=== PATIENT | male | born 1975 | race American Indian/Alaskan Native ===

== ENCOUNTER 2017-12-01 04:20 | Inpatient (IN) | payer OTHER ==
--- NOTE | 2017-12-01 04:56 | C.PDOC ---
Time Seen by Provider: 12/01/17 04:36 Chief Complaint (Nursing): Psychiatric Evaluation Past Medical History Vital Signs: Last Vital Signs Temp 98.3 F 12/01/17 04:35 Pulse 85 12/01/17 04:35 Resp 20 12/01/17 04:35 BP 147/87 12/01/17 04:35 Pulse Ox 96 12/01/17 04:35 - Social History Hx Alcohol Use: Yes Hx Substance Use: No - Immunization History Hx Tetanus Toxoid Vaccination: No Hx Influenza Vaccination: No Hx Pneumococcal Vaccination: No ED Course And Treatment O2 Sat by Pulse Oximetry: 96 Disposition - Disposition
--- NOTE | 2017-12-01 05:58 | C.PDOC ---
History Of Present Illness <Gisselle Teran - Last Filed: 12/01/17 06:56> <Nancy Kitchen - Last Filed: 12/01/17 16:53> <Franc Winchester - Last Filed: 12/06/17 00:12> 42yo male, brought to ER by his brothers for evaluation as patient has had increasingly odd behavior over the last few days to longer. The brothers report the patient recently moved to [place] from [place] (had been living there for 21+ years) and are unsure if he was on any medications or specific treatment plan. Patient has had pyschiatric hospitalizations in the past. 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 Patient currently has no medical complaints. (Gisselle Teran) History Per: Family Onset/Duration Of Symptoms: Persistent Current Symptoms Are (Timing): Still Present Associated Symptoms: Anger, Agitation <Gisselle Teran - Last Filed: 12/01/17 06:56> <Nancy Kitchen - Last Filed: 12/01/17 16:53> <Franc Winchester - Last Filed: 12/06/17 00:12> Time Seen by Provider: 12/01/17 04:36 Chief Complaint (Nursing): Psychiatric Evaluation Past Medical History Reviewed: Historical Data, Nursing Documentation, Vital Signs Surgical History: No Surg Hx Family History: States: No Known Family Hx - Social History Hx Alcohol Use: Yes Hx Substance Use: No - Immunization History Hx Tetanus Toxoid Vaccination: No Hx Influenza Vaccination: No Hx Pneumococcal Vaccination: No <Gisselle Teran - Last Filed: 12/01/17 06:56> Vital Signs: Last Vital Signs Temp 97.6 F 12/05/17 05:22 Pulse 102 H 12/05/17 15:51 Resp 18 12/05/17 05:22 BP 130/94 H 12/05/17 15:51 Pulse Ox 98 12/01/17 10:04 Review Of Systems Constitutional: Negative for: Fever, Chills Cardiovascular: Negative for: Chest Pain Respiratory: Negative for: Shortness of Breath Gastrointestinal: Negative for: Abdominal Pain Psych: Positive for: Other (odd behavior, patient has psychiatric history) <Gisselle Teran - Last Filed: 12/01/17 06:56> Physical Exam - Physical Exam Appears: Non-toxic, No Acute Distress Skin: Warm, Dry Head: Atraumatic Eye(s): bilateral: Normal Inspection Neck: Supple Chest: Symmetrical Extremity: Normal ROM Neurological/Psych: Oriented x3 <Gisselle Teran - Last Filed: 12/01/17 06:56> <Nancy Kitchen - Last Filed: 12/01/17 16:53> <Franc Winchester - Last Filed: 12/06/17 00:12> - Physical Exam Additional Physical Exam Comments: Limited exam as patient is becoming increasingly aggressive during interview and exam (Gisselle Teran) ED Course And Treatment - Laboratory Results Result Diagrams: 12/01/17 05:38 12/01/17 06:24 O2 Sat by Pulse Oximetry: 96 (RA) Pulse Ox Interpretation: Normal Progress Note: Patient is intimidating, and is hostile when his chain with a cross is referred to as a necklace, limited exam due to behavior. Crisis evaluation requested; patient pending UDS, alcohol serum, CBC, CMP, urinalysis. <Gisselle Teran - Last Filed: 12/01/17 06:56> - Laboratory Results Result Diagrams: 12/01/17 05:38 12/01/17 06:24 <Nancy Kitchen - Last Filed: 12/01/17 16:53> - Laboratory Results Result Diagrams: 12/01/17 05:38 12/01/17 06:24 <Franc Winchester - Last Filed: 12/06/17 00:12> Medical Decision Making: Time: 0530 Per crisis team, patient to be evaluated by the next shift. Currently pending labs, UDS results. (Gisselle Teran) Sign out received at 0700, pending labs and disposition. Patient was medically cleared for psych eval and admission. Case was discussed with Dr. Robertson and patient was admitted to the psych floor. (Nancy Kitchen) Disposition - Disposition Disposition Time: 06:57 <Gisselle Teran - Last Filed: 12/01/17 06:56> - Disposition Disposition Time: 08:00 <Nancy Kitchen - Last Filed: 12/01/17 16:53> <Franc Winchester - Last Filed: 12/06/17 00:12> - Disposition Disposition: HOSPITALIZED Condition: STABLE - Clinical Impression Clinical Impression: Psychiatric illness, Acute psychosis - PA / RAILWAY SIGNAL TECHNICIAN / Resident Statement MD/DO has reviewed & agrees with the documentation as recorded. - Scribe Statement The provider has reviewed the documentation as recorded by the Scribe (Jacqueline Valentine) <Gisselle Teran - Last Filed: 12/01/17 06:56> <Nancy Kitchen - Last Filed: 12/01/17 16:53> <Franc Winchester - Last Filed: 12/06/17 00:12> - Scribe Statement Provider Attestation: All medical record entries made by the Scribe were at my direction and personally dictated by me. I have reviewed the chart and agree that the record accurately reflects my personal performance of the history, physical exam, medical decision making, and the department course for this patient. I have also personally directed, reviewed, and agree with the discharge instructions and disposition. (Gisselle Teran) Physician Patient Turnover Patient Signed Over To: Nancy Kitchen Handoff Comments: follow up crisis consult. dispo accordingly <Gisselle Teran - Last Filed: 12/01/17 06:56>
[2017-12-01 06:08] LABS: BASO % 0.5 % (0.0-2.0); EOS # 0.3 K/uL (0.0-0.7); EOS % 3.8 % (0.0-4.0); HEMOGLOBIN 14.3 g/dL (12.0-18.0); MEAN CELL VOLUME 86.2 fL (80.0-94.0); MEAN CORPUSCULAR HEMOGLOBIN 28.6 pg (27.0-31.0); MEAN CORPUSCULAR HGB CONC 33.2 g/dL (33.0-37.0); MEAN PLATELET VOLUME 8.2 fL (7.2-11.7); MONO # 0.6 K/uL (0.0-0.8); MONO % 8.3 % (0.0-10.0); NEUT # 4.1 K/uL (1.8-7.0); NEUT % 58.4 % (50.0-75.0); NRBC % 0.1 % (0.0-2.0); RBC 5.02 Mil/uL (4.40-5.90); RED CELL DISTRIBUTION WIDTH 15.3 % (11.5-14.5)
[2017-12-01 06:33] LABS: ALB/GLOB RATIO 1.2 (1.0-2.1); ALBUMIN 4.3 g/dL (3.5-5.0); ALT/SGPT 30 U/L (21-72); AST/SGOT 106 U/L (17-59); BLOOD UREA NITROGEN 17 mg/dL (9-20); CALCIUM 9.3 mg/dl (8.6-10.4); GFR AFRICAN-AMERICAN > 60; GFR NON-AFRICAN AMERICAN > 60
[2017-12-01 08:23] LABS: URINE BILIRUBIN NEGATIVE (NEGATIVE); URINE BLOOD 1+ (NEGATIVE); URINE CLARITY Hazy (Clear); URINE COLOR Colorless (YELLOW); URINE GLUCOSE (UA) NORMAL (Normal); URINE LEUKOCYTE ESTERASE NEG Leu/uL (Negative); URINE PROTEIN NEGATIVE (NEGATIVE); URINE UROBILINOGEN NORMAL mg/dL (0.2-1.0)
[2017-12-01 08:47] LABS: BARBITURATES, UR NEGATIVE (NEGATIVE); BENZODIAZEPINES, UR NEGATIVE (NEGATIVE); OPIATES, UR NEGATIVE (NEGATIVE); PHENCYCLIDINE, UR NEGATIVE (NEGATIVE)
[2017-12-01 10:05] VITALS: O2SAT 98
--- NOTE | 2017-12-01 11:05 | PCM.PSYCH ---
Initial Psychiatric Evaluation - Initial Psychiatric Evaluation Type of Admission: Voluntary Legal Status: Capacity Chief Complaint (in patient's own words): I know more than all of you.' History of Present Illness and Precipitating Events: Patient is a 42 year old male AAM brought to [facility] via EMS secondary to his family calling reporting bizarre behavior. Patient remained disorganized and internally preoccupied throughout the evaluation. He remained superficially cooperative bur remained guarded about the details. Patient reports there was an incident in the home and that his brothers refused to let him leave his sisters apartment (where he has been staying). Patient angrily stated He is not my grandfather. Patient also maintains that he called 911. 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 Patient then proceeded to tell this film writer that there is actually a 19th wheel. Patient states I see everything (from the vantage point of a [employer] cab) and I am beyond the '[employer]'. 'The god of truck drivers.' He appeared to have loose associations. Patient stated 'I wanted to move to the [place] but saw a building in [facility] which is tall like me.' This is where I will be in peace.' Patient expressed to this film writer his frustration over people disregarding the environment and Mother Nature. Patient denies any substance abuse history. Patent denies SI and HI. 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 Football and hockey with a trampoline. Patient has recently relocated back to [place] after spending 21 years in [place]. It is unclear as to how long he has been back. When asked why he moved back patients stated My father Pieter. Patient reports staying with his sister but is looking for a new place to live. PMH None reported Past Psychiatric History - Past Psychiatric History Previous Treatment History: Inpatient Pertinent Medical Hx (Current Medical&Sleep Prob, Allergies): Allergies Allergy/AdvReac Type Severity Reaction Status Date / Time No Known Allergies Allergy Unverified 12/01/17 05:24 No Known Home Med 12/01/17 Review of Systems - Review of Systems All systems: reviewed and no additional remarkable complaints except - Psychiatric Psychiatric: Anxiety, Irritability, Mood Swings, Paranoia Mental Status Examination - Personal Presentation Personal Presentation: Looks stated age - Affect Affect: Broad - Motor Activity Motor Activity: Psychomotor Agitation - Reliability in Providing Information Reliability in Providing Information: Poor, due to alteration in thoughts, Poor , due to altered mood - Speech Speech: Disorganized - Mood Mood: Depressed, Anxious - Formal Thought Process Formal Thought Process: Hallucinations, Delusions, Paranoia, Loosening of associations, Flight of ideas, Circumstantial - Hallucinations/Delusions Hallucinations: Auditory Delusions: Persecution - Obsessions/Compulsions Obsessions: No Compulsions: No - Cognitive Functions Orientation: Person, Place, Situation, Time Sensorium: Alert Attention/Concentration: Easily distracted Abstract Thinking: As evidence by abstract perception of proverbs Estimate of Intelligence: Below average Judgement: Imparied, as evidence by: Poor judgement, Imparied, as evidence by: Lack of insight into illness - Risk Risk: Diminished functioning - Strength & Assets Inventory Strength & Assets Inventory: Family support DSM 5 DX - DSM 5 DSM 5 Diagnosis: Schizoaffective disorder bipolar type Cannabis use disorder moderate - Recommended/Plan of Treatment Treatment Recommendations and Plan of Treatment: Schizoaffective disorder bipolar type -CBT -Psychoeducation -Supportive therapy, group therapy, individual therapy -Depakote 500 mg PO BID -Haldol 10 mg PO BID -Klonopin 1 mg PO TID -Trazodone 50 mg by mouth daily at bedtime -Gabapentin 300 mg PO TID Cannabis use disorder moderate -Monitor signs and symptoms -Use OR for abstinence - Smoking Cessation Smoking Cessation Initiated: No
--- NOTE | 2017-12-01 11:17 | PCM.BM ---
<Bella Mcmahon - Last Filed: 12/01/17 11:13> Treatment Plan Problems - Problems identified on initial assessmt Acute Psychosis Date Initiated: 12/01/17 Time Initiated: :17 Assessment reference: NA Status: Active Treatment assets and liabiliti Patient Assests: adapts well, cooperative, ADL independent, physically healthy, negotiates basic needs Patient Liabilities: live alone (Lives with famly), financial problems, substance abuse (None), medical problems (None) - Milieu Protocol Maintain good personal hygiene: daily Encourage regular showers, daily Remind patient to perform daily oral care, daily Assist patient to perform ADL's (Self) Conduct patient checks and document Observation sheet: Q15 minutes (Safety) Maintain personal safety: every shift Educate patient to report safety concerns to staff, every shift Monitor environment for contraband/sharps Medication safety: Monitor for expected outcome, potential side effects: every shift, Assess barriers to learning: every shift, Assess readiness for medication education: every shift <Anabel Weston - Last Filed: 12/02/17 11:06> Treatment Plan Problems - Problems identified on initial assessmt Acute Psychosis Date Initiated: 12/01/17 Time Initiated: :17 Assessment reference: NA Status: Active psychosi Date Initiated: 12/01/17 Time Initiated: :17 Assessment reference: NA Status: Active - Diagnosis (1) Schizoaffective disorder Status: Acute Interventions: 12/02/17 11:06 * Assess/adjust medications daily and /or as needed * See patient on an individual basis 7x/week to assess status of hallucinations * Discuss risks, benefits, side effects and alternatives of medications * <Ruba Gaspar - Last Filed: 12/02/17 11:07> Family Contact Family involvement: Famliy/SO not involved - Goals for Treatment Patient goals for treatment: "I don't know." Discharge/Continuing Care - Education Needs Education Needs: Patient Medication, Patient Coping Skills, Patient Placement options, Patient Community resources - Discharge Discharge Criteria: Tolerates medication w/o severe side effects, Free of paranoid thoughts, Reduction of target symptoms Discharge to:: Skilled Nursing - Treatment Team Participation Discussed with Family/SO: No Was Patient/Family/SO present at Treatment Team Meeting: Yes
[2017-12-01] MEDS: Divalproex 500 mg DR Tab PO SCH ×2 (11:23→17:10)
--- NOTE | 2017-12-02 09:59 | PCM.PYCHPN ---
Psychiatric Progress Note - Psychiatric Progress Note Patient seen today, length of contact: 16 min Patient Chief Complaint: I will rip apart the one who will get close to me.' Problems Identified/Issues Discussed: Patient seen and evaluated, chart reviewed and discussed with the nurse. Patient remained disorganized and internally preoccupied. He still reports of hearing God's voices. Patient still appears paranoid and delusional. He irritable and agitated. Patient remained isolated, confined and withdrawn. Patient is compliant with medications and denies any side effects. Symptoms are improving but need more time to stabilize. Support and psychoeducation given. Medication Change: Yes Medical Record Reviewed: Yes Mental Status Examination - Cognitive Function Orientation: Person, Place, Situation, Time Memory: Intact Attention: Poor Concentration: Poor Association: Loose Fund of Knowledge: Poor - Mood Mood: Anxious - Affect Affect: Broad - Speech Speech: Pressured - Formal Thought Process Formal Thought Process: Hallucinations, Delusions, Paranoia, Loosening of associations, Flight of ideas, Circumstantial - Suicidal Ideation Suicidal Ideation: No - Homicidal Ideation Homicidal Ideation: Yes Goal/Treatment Plan - Goal/Treatment Plan Need for Continued Stay: Severe depression anxiety, Severe functional impairment Progress Toward Problem(s) and Goals/Treatment Plan: Schizoaffective disorder bipolar type -CBT -Psychoeducation -Supportive therapy, group therapy, individual therapy -Depakote 500 mg PO BID -Haldol 10 mg PO BID -Klonopin 1 mg PO TID -Trazodone 50 mg by mouth daily at bedtime -Gabapentin 300 mg PO TID Cannabis use disorder moderate -Monitor signs and symptoms -Use [place] for abstinence
[2017-12-02] MEDS: Divalproex 500 mg DR Tab PO SCH ×2 (10:04→17:36)
[2017-12-03] MEDS: Divalproex 500 mg DR Tab PO SCH ×2 (09:19→17:04)
--- NOTE | 2017-12-03 23:38 | PCM.PYCHPN ---
Psychiatric Progress Note - Psychiatric Progress Note Patient seen today, length of contact: 16 min Medication Change: Yes Medical Record Reviewed: Yes Mental Status Examination - Cognitive Function Orientation: Person, Place, Situation, Time Memory: Intact Attention: Poor Concentration: Poor Association: Loose Fund of Knowledge: Poor - Mood Mood: Anxious - Affect Affect: Broad - Speech Speech: Pressured - Formal Thought Process Formal Thought Process: Hallucinations, Delusions, Paranoia, Loosening of associations, Flight of ideas, Circumstantial - Suicidal Ideation Suicidal Ideation: No - Homicidal Ideation Homicidal Ideation: Yes Goal/Treatment Plan - Goal/Treatment Plan Need for Continued Stay: Severe depression anxiety, Severe functional impairment
[2017-12-04] MEDS: Divalproex 500 mg DR Tab PO SCH ×2 (09:37→17:20)
[2017-12-04] MEDS ORDERED: Pneumococcal 23-Valent Vaccine SC ONE (11:16)
[2017-12-05 05:24] VITALS: RESP 18
[2017-12-05] MEDS: Divalproex 500 mg DR Tab PO SCH ×2 (10:36→17:23)
[2017-12-06 06:47] VITALS: BP 119/86; PULSE 74; TEMP 97.4
[2017-12-06] MEDS ORDERED: Haloperidol Decanoate 100 mg/ml Inj IM ONE (09:59)
--- NOTE | 2017-12-06 10:02 | PCM.PYCHDC ---
Mental Status Examination - Mental Status Examination Orientation: Person, Place, Situation, Time Memory: Intact Mood: Neutral Affect: Constricted Speech: Soft Attention: WNL Concentration: WNL Association: WNL Fund of Knowledge: WNL Formal Thought Process: No Impairment Description of patient's judgement and insight: good, fair Psychotic Thoughts and Behaviors: denies any AVH Suicidal Ideation: No Current Homicidal Ideation?: No Discharge Summary - Discharge Note Reason for Hospitalization: Patient is a 42 year old male AAM brought to [facility] via EMS secondary to his family calling reporting bizarre behavior. Patient remained disorganized and internally preoccupied throughout the evaluation. He remained superficially cooperative bur remained guarded about the details. Patient reports there was an incident in the home and that his brothers refused to let him leave his sisters apartment (where he has been staying). Patient angrily stated He is not my grandfather. Patient also maintains that he called 911. 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 Patient then proceeded to tell this film writer that there is actually a 19th wheel. Patient states I see everything (from the vantage point of a tricks cab) and I am beyond the '[employer]'. 'The god of truck drivers.' He appeared to have loose associations. Patient stated 'I wanted to move to the [place] but saw a building in [facility] which is tall like me.' This is where I will be in peace.' Patient expressed to this film writer his frustration over people disregarding the environment and Mother Nature. Patient denies any substance abuse history. Patent denies SI and HI. 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 Football and hockey with a trampoline. Patient has recently relocated back to [place] after spending 21 years in [place]. It is unclear as to how long he has been back. When asked why he moved back patients stated My father Pieter. Patient reports staying with his sister but is looking for a new place to live. Consultations:: List each consultation separately and include: 1. Reason for request. 2. Findings. 3. Follow-up Summary of Hospital Course include:: 1. Description of specific treatment plan utilized for patients during their course of treatmen. 2. Summarize the time- course for resolution of acute symptoms and/or regressed behaviors. 3. Describe issues identified and worked on during hospitalization. 4. Describe medication utilized. 5. Describe medical problems identified and treated. 6. Reassessment of suicide risk Summary of Hospital Course: Patient is a 42 year old male AAM brought to [facility] via EMS secondary to his family calling reporting bizarre behavior. Patient remained disorganized and internally preoccupied throughout the evaluation. He remained superficially cooperative bur remained guarded about the details. Patient reports there was an incident in the home and that his brothers refused to let him leave his sisters apartment (where he has been staying). Patient angrily stated He is not my grandfather. Patient also maintains that he called 911. 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 Patient then proceeded to tell this film writer that there is actually a 19th wheel. Patient states I see everything (from the vantage point of a [employer] cab) and I am beyond the '[employer]'. 'The god of truck drivers.' He appeared to have loose associations. Patient stated 'I wanted to move to the [place] but saw a building in [facility] which is tall like me.' This is where I will be in peace.' Patient expressed to this film writer his frustration over people disregarding the environment and Mother Nature. Patient denies any substance abuse history. Patent denies SI and HI. 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 Football and hockey with a trampoline. Patient has recently relocated back to [place] after spending 21 years in [place]. It is unclear as to how long he has been back. When asked why he moved back patients stated My father Pieter. Patient reports staying with his sister but is looking for a new place to live. PMH None reported - Diagnosis (1) Schizoaffective disorder Current Visit: Yes Status: Acute - Final Diagnosis (DSM 5) Condition upon Discharge: STABLE Disposition: HOME/ ROUTINE Follow-up Treatment Plan: Schizoaffective disorder bipolar type -CBT -Psychoeducation -Supportive therapy, group therapy, individual therapy -Depakote 500 mg PO BID -Haldol 10 mg PO BID -Klonopin 1 mg PO TID -Trazodone 50 mg by mouth daily at bedtime -Gabapentin 300 mg PO TID Cannabis use disorder moderate -Monitor signs and symptoms -Use [place] for abstinence Prescriptions/Medication Reconciliation: Benztropine [Cogentin] 1 mg PO BID #60 tab Divalproex [Depakote DR] 500 mg PO BID #60 tcp Haloperidol [Haldol] 10 mg PO BID #60 tab traZODone [Desyrel] 50 mg PO HS #30 tab
[2017-12-06] MEDS: Divalproex 500 mg DR Tab PO SCH (10:07)
== END 2017-12-06 15:18 | disposition home or self-care (01) | DRG 885 ==
LOC: C.ER 04:20 → C.5E 09:25
PROVIDERS: ADMIT Psychiatry & Neurology Psychiatry; ATTEND Psychiatry & Neurology Psychiatry
PROC: GZ3ZZZZ Medication Management (ICD-10-PCS; principal; 2017-12-01)
PROC: GZHZZZZ Group Psychotherapy (ICD-10-PCS; 2017-12-01)
PROC: GZ56ZZZ Individual Psychotherapy, Supportive (ICD-10-PCS; 2017-12-01)
PROC: HZ89ZZZ Medication Management for Substance Abuse Treatment, Other Replacement Medication (ICD-10-PCS; 2017-12-01)
DX: F25.0 Schizoaffective disorder, bipolar type (principal); F12.20 Cannabis dependence, uncomplicated

== ENCOUNTER → 2017-12-27 22:41 | Emergency (ER) | payer OTHER | END | disposition left against medical advice (07) | LOC: C.ER 22:41 | DX: Z02.89 Encounter for other administrative examinations (principal) ==